=== PATIENT | male | born 1955 | race Caucasian/White ===

== ENCOUNTER 2018-05-31 11:01 | Outpatient (RCR) | payer OTHER | END 2018-05-31 14:43 | disposition home or self-care (01) | LOC: WSOH 11:01 | DX: S83.242A Other tear of medial meniscus, current injury, left knee, initial encounter (principal); S83.412A Sprain of medial collateral ligament of left knee, initial encounter; R60.0 Localized edema; W18.42XA Slipping, tripping and stumbling without falling due to stepping into hole or opening, initial encounter; Y93.01 Activity, walking, marching and hiking; Y92.214 College as the place of occurrence of the external cause; Y99.0 Civilian activity done for income or pay; Z79.899 Other long term (current) drug therapy; I10 Essential (primary) hypertension | CPT/HCPCS: G0283-GP ==

== ENCOUNTER 2018-06-27 09:39 | Outpatient (RCR) | payer OTHER | END 2018-09-25 | disposition home or self-care (01) | LOC: WSOH | DX: S83.412D Sprain of medial collateral ligament of left knee, subsequent encounter (principal); S83.242D Other tear of medial meniscus, current injury, left knee, subsequent encounter; X50.1XXD Overexertion from prolonged static or awkward postures, subsequent encounter; Z79.899 Other long term (current) drug therapy ==

== ENCOUNTER 2018-11-26 07:59 | Outpatient (RCR) | payer OTHER | END 2019-01-21 15:39 | disposition home or self-care (01) | LOC: WSOH 07:59 | DX: S61.021A Laceration with foreign body of right thumb without damage to nail, initial encounter (principal); W22.8XXA Striking against or struck by other objects, initial encounter; Y92.214 College as the place of occurrence of the external cause; Y99.0 Civilian activity done for income or pay; Z23 Encounter for immunization; I10 Essential (primary) hypertension; Z79.899 Other long term (current) drug therapy ==